=== PATIENT | female | born 1985 | race Caucasian/White ===

== ENCOUNTER 2023-01-07 08:23 | Outpatient (CLI) | payer BC, SELFPAY ==
[2023-01-07 19:59] LABS: Basophils Absolute Auto 0.1 K/mm3 (0.0-0.1); Basophils Percent Auto 1.2 % (0.2-1.2); Eosinophils Absolute Auto 0.7 K/mm3 (0-0.3); Eosinophils Percent Auto 7.8 % (0-4.4); Hematocrit 39.5 % (37.0-47.0); Hemoglobin 12.5 g/dL (12.0-15.0); Immature Granulocyte Absolute 0.03 K/mm3 (0.00-0.031); Immature Granulocyte Percent A 0.3 % (0-0.5); Lymphocytes Absolute Auto 2.82 K/mm3 (0.9-3.2); Lymphocytes Percent Auto 30.1 % (18.3-44.2); Mean Corpuscular HGB Conc 31.6 g/dl (32-36); Mean Corpuscular Hemoglobin 27.1 pg (26-34); Mean Corpuscular Volume 85.7 fl (80-100); Monocytes Absolute Auto 0.6 K/mm3 (0.1-0.6); Monocytes Percent Auto 5.9 % (2.6-8.5); Neutrophils Absolute Auto 5.1 K/mm3 (1.3-6.7); Neutrophils Percent Auto 54.7 % (45.5-73.1); Platelet Count Result 332 k/mm3 (150-375); Red Blood Count 4.61 M/mm3 (4.2-5.4); Red Cell Distribution Width 14.8 % (11.5-14.5); White Blood Count 9.4 K/mm3 (4.5-10.0)
[2023-01-07 21:11] LABS: Vitamin D 25 Hydroxy 47.5 ng/mL
[2023-01-07 21:16] LABS: Alanine Aminotransferase 26 U/L (6-35); Albumin Level 4.5 g/dL (3.5-5.1); Alkaline Phosphatase 76 U/L (38-126); Anion Gap 6 mmol/L (8-16); Aspartate Amino Transferase 22 U/L (14-36); Bilirubin,Total 0.5 mg/dL (0.2-1.3); Blood Urea Nitrogen 16 mg/dL (7-17); Calcium 8.8 mg/dL (8.4-10.2); Carbon Dioxide 29 mmol/L (22-30); Chloride 101 mmol/L (98-107); Cholesterol 148 mg/dL (0-200); Estimated Glomerular Filt Rate > 60; Glucose 86 mg/dL (65-110); HDL Direct 29 mg/dL; Potassium 4.2 mmol/L (3.4-5.0); Sodium 136 mmol/L (137-145); Triglycerides 144 mg/dL (<150)
[2023-01-07 21:24] LABS: Thyroid Stimulating Hormone Reflex 0.404 uIU/mL (0.465-4.68)
[2023-01-07 21:27] LABS: LDL Cholesterol Direct 80 mg/dL
[2023-01-07 21:59] LABS: Free T4 Free Thyroxine Reflex 1.12 ng/dL (0.78-2.19)
[2023-01-07 22:49] LABS: Total Triiodothyronine (T3) 1.42 NG/ML (0.97-1.69)
== END 2023-01-07 08:24 | disposition home or self-care (01) ==
LOC: ANHGOSHLAB 08:24
PROVIDERS: PCP Family Medicine; Visit Provider Nurse Practitioner
DX: E78.5 Hyperlipidemia, unspecified (principal); E55.9 Vitamin D deficiency, unspecified; R53.83 Other fatigue
CPT/HCPCS: 36415; 80053; 80061; 82306; 84439; 84443; 84480; 85025

== ENCOUNTER 2023-03-03 10:14 | Outpatient (CLI) | payer BC, SELFPAY ==
--- NOTE | ~2023-03-03 | MMUS_ITS ---
EXAMINATION: MM diagnostic ortega BI w cathryn, US breast RT limited HISTORY: Pancreatic raised approximately 6 x 8 cm area of right breast TECHNIQUE: Bilateral ML, MLO and CC full field and right spot ML, MLO and CC 3-D tomosynthesis images were performed and synthetic 2-D images were generated. CAD analysis was submitted and interpreted. The examination was initiated with ordered ultrasound examination. High resolution targeted right nichole ast ultrasound was performed over the area of complaint of pinkish raise area of right breast at 3:00 .. COMPARISON: None BREAST PARENCHYMAL COMPOSITION: The breasts are heterogeneously dense, which may obscure small masses . FINDINGS: MAMMOGRAPHIC FINDINGS: There is skin thickening in the lower inner quadrant of the right breast. No mammographic mass or architectural distortion, malignant calcification in either breast is detecte d. Occasional bilateral benign calcifications. ULTRASOUND: There is heterogeneous dense tissue with nonspecific shadowing, without identifiable discrete mass at the area of complaint at 3:00 7 cm from the nipple. IMPRESSION: 1. Asymmetric some skin thickening in the lower outer quadrant of the right breast, with dense shadow ing fibroglandular stroma on ultrasound examination at 3:00 7 cm from the nipple. 2. Consider skin punch biopsy in the lower outer right breast and/or ultrasound-guided biopsy of the dense shadowing tissue at 3:00 7 cm from the nipple. BI-RADS category 4, suspicious findings. Reviewed, dictated and finalized at location A. IMPRESSION: 1. Asymmetric some skin thickening in the lower outer quadrant of the right nichole ast, with dense shadowing fibroglandular stroma on ultrasound examination at 3: 00 7 cm from the nipple. 2. Consider skin punch biopsy in the lower outer right breast and/or ultrasound -guided biopsy of the dense shadowing tissue at 3:00 7 cm from the nipple. BI-RADS category 4, suspicious findings.
== END 2023-03-03 10:15 | disposition home or self-care (01) ==
PROVIDERS: PCP Nurse Practitioner; Visit Provider Nurse Practitioner
DX: N63.0 Unspecified lump in unspecified breast (principal); R92.8 Other abnormal and inconclusive findings on diagnostic imaging of breast
CPT/HCPCS: 76642; 77062; 77066; G0279

== ENCOUNTER 2023-10-09 09:22 | Outpatient (CLI) | payer BC, OTHER, SELFPAY ==
[2023-10-09 18:40] LABS: Basophils Absolute Auto 0.1 K/mm3 (0.0-0.1); Basophils Percent Auto 0.8 % (0.2-1.2); Eosinophils Absolute Auto 0.9 K/mm3 (0-0.3); Eosinophils Percent Auto 6.2 % (0-4.4); Hematocrit 38.6 % (37.0-47.0); Hemoglobin 12.2 g/dL (12.0-15.0); Immature Granulocyte Absolute 0.08 K/mm3 (0.00-0.031); Immature Granulocyte Percent A 0.6 % (0-0.5); Lymphocytes Percent Auto 19.2 % (18.3-44.2); Mean Corpuscular HGB Conc 31.6 g/dl (32-36); Mean Corpuscular Hemoglobin 27.2 pg (26-34); Mean Platelet Volume 9.1 fl (7.4-10.4); Monocytes Absolute Auto 0.8 K/mm3 (0.1-0.6); Monocytes Percent Auto 5.7 % (2.6-8.5); Neutrophils Absolute Auto 9.5 K/mm3 (1.3-6.7); Neutrophils Percent Auto 67.5 % (45.5-73.1); Platelet Count Result 376 k/mm3 (150-375); Red Blood Count 4.49 M/mm3 (4.2-5.4); Red Cell Distribution Width 14.3 % (11.5-14.5); White Blood Count 14.1 K/mm3 (4.5-10.0)
[2023-10-09 18:55] LABS: Alanine Aminotransferase 28 U/L (6-35); Albumin Level 4.1 g/dL (3.5-5.1); Alkaline Phosphatase 88 U/L (38-126); Anion Gap 9 mmol/L (8-16); Aspartate Amino Transferase 33 U/L (14-36); Bilirubin,Total 0.4 mg/dL (0.2-1.3); Blood Urea Nitrogen 10 mg/dL (7-17); Calcium 9.3 mg/dL (8.4-10.2); Carbon Dioxide 29 mmol/L (22-30); Chloride 102 mmol/L (98-107); Cholesterol 150 mg/dL (0-200); Estimated Glomerular Filt Rate > 60; Glucose 89 mg/dL (65-110); HDL Direct 33 mg/dL; Potassium 4.8 mmol/L (3.4-5.0); Sodium 140 mmol/L (137-145); Triglycerides 168 mg/dL (<150)
[2023-10-09 19:17] LABS: LDL Cholesterol Direct 89 mg/dL
[2023-10-09 19:24] LABS: Hemoglobin A1C 5.5 % (<5.7)
== END 2023-10-09 09:23 | disposition home or self-care (01) ==
LOC: ANHGOSHLAB 09:25
PROVIDERS: PCP Family Medicine; Visit Provider Nurse Practitioner Family
DX: Z00.00 Encounter for general adult medical examination without abnormal findings (principal); E78.5 Hyperlipidemia, unspecified; Z13.220 Encounter for screening for lipoid disorders; R73.03 Prediabetes
CPT/HCPCS: 36415; 80053; 80061; 83036; 85025

== ENCOUNTER 2024-04-11 09:29 | Outpatient (CLI) | payer OTHER, SELFPAY ==
[2024-04-11 13:16] LABS: Basophils Absolute Auto 0.1 K/mm3 (0.0-0.1); Basophils Percent Auto 1.2 % (0.2-1.2); Eosinophils Absolute Auto 0.6 K/mm3 (0-0.3); Eosinophils Percent Auto 9.2 % (0-4.4); Hematocrit 38.8 % (37.0-47.0); Hemoglobin 12.2 g/dL (12.0-15.0); Immature Granulocyte Absolute 0.03 K/mm3 (0.00-0.031); Immature Granulocyte Percent A 0.5 % (0-0.5); Lymphocytes Absolute Auto 1.53 K/mm3 (0.9-3.2); Lymphocytes Percent Auto 23.4 % (18.3-44.2); Mean Corpuscular HGB Conc 31.4 g/dl (32-36); Mean Corpuscular Hemoglobin 26.1 pg (26-34); Mean Corpuscular Volume 83.1 fl (80-100); Mean Platelet Volume 8.8 fl (7.4-10.4); Monocytes Absolute Auto 0.7 K/mm3 (0.1-0.6); Neutrophils Absolute Auto 3.6 K/mm3 (1.3-6.7); Neutrophils Percent Auto 55.7 % (45.5-73.1); Platelet Count Result 328 k/mm3 (150-375); Red Blood Count 4.67 M/mm3 (4.2-5.4); Red Cell Distribution Width 15.7 % (11.5-14.5); White Blood Count 6.5 K/mm3 (4.5-10.0)
[2024-04-11 13:34] LABS: Alanine Aminotransferase 35 U/L (6-35); Albumin Level 4.2 g/dL (3.5-5.1); Alkaline Phosphatase 90 U/L (38-126); Anion Gap 6 mmol/L (4-12); Aspartate Amino Transferase 40 U/L (14-36); Bilirubin,Total 0.4 mg/dL (0.2-1.3); Blood Urea Nitrogen 9 mg/dL (7-17); Calcium 8.8 mg/dL (8.4-10.2); Carbon Dioxide 26 mmol/L (22-30); Chloride 108 mmol/L (98-107); Cholesterol 145 mg/dL (0-200); Estimated Glomerular Filt Rate > 60; Glucose 85 mg/dL (65-110); HDL Direct 31 mg/dL; Potassium 4.2 mmol/L (3.4-5.0); Sodium 140 mmol/L (137-145); Triglycerides 144 mg/dL (<150)
[2024-04-11 13:46] LABS: LDL Cholesterol Direct 93 mg/dL
[2024-04-11 13:58] LABS: Hemoglobin A1C 5.7 % (<5.7)
[2024-04-11 14:05] LABS: Thyroid Stimulating Hormone 0.225 uIU/mL (0.465-4.680)
== END 2024-04-11 09:30 | disposition home or self-care (01) ==
LOC: ANHGOSHLAB 09:31
PROVIDERS: PCP Family Medicine; Visit Provider Nurse Practitioner Family
DX: E78.5 Hyperlipidemia, unspecified (principal); D35.00 Benign neoplasm of unspecified adrenal gland; F41.9 Anxiety disorder, unspecified; R53.83 Other fatigue; R73.03 Prediabetes; Z13.29 Encounter for screening for other suspected endocrine disorder
CPT/HCPCS: 36415; 80053; 80061; 83036; 84443; 85025

== ENCOUNTER 2024-05-02 10:25 | Outpatient (CLI) | payer OTHER, SELFPAY ==
[2024-05-02 16:16] LABS: Free T4 Free Thyroxine 0.87 ng/mL (0.78-2.19)
[2024-05-02 16:30] LABS: Thyroid Stimulating Hormone Reflex 0.207 uIU/mL (0.465-4.68)
[2024-05-02 17:15] LABS: Free T4 Free Thyroxine Reflex 1.07 ng/dL (0.78-2.19)
[2024-05-02 18:19] LABS: Total Triiodothyronine (T3) 1.74 NG/ML (0.97-1.69)
[2024-05-03 07:58] LABS: Triiodothyronine T3 Free 3.4 pg/mL (2.3-4.2)
== END 2024-05-02 10:26 | disposition home or self-care (01) ==
LOC: ANHGOSHLAB 10:27
PROVIDERS: PCP Family Medicine; Visit Provider Nurse Practitioner Family
DX: R79.89 Other specified abnormal findings of blood chemistry (principal); E03.9 Hypothyroidism, unspecified
CPT/HCPCS: 36415; 84439; 84443; 84480; 84481

== ENCOUNTER 2024-10-12 08:46 | Outpatient (CLI) | payer OTHER, SELFPAY ==
[2024-10-12 14:12] LABS: Basophils Absolute Auto 0.1 K/mm3 (0.0-0.1); Basophils Percent Auto 0.8 % (0.2-1.2); Eosinophils Percent Auto 8.5 % (0-4.4); Hematocrit 38.9 % (37.0-47.0); Hemoglobin 12.2 g/dL (12.0-15.0); Immature Granulocyte Absolute 0.08 K/mm3 (0.00-0.031); Immature Granulocyte Percent A 0.7 % (0-0.5); Lymphocytes Absolute Auto 2.53 K/mm3 (0.9-3.2); Lymphocytes Percent Auto 21.3 % (18.3-44.2); Mean Corpuscular HGB Conc 31.4 g/dl (32-36); Mean Corpuscular Hemoglobin 26.9 pg (26-34); Mean Corpuscular Volume 85.7 fl (80-100); Mean Platelet Volume 8.9 fl (7.4-10.4); Monocytes Absolute Auto 0.6 K/mm3 (0.1-0.6); Monocytes Percent Auto 5.3 % (2.6-8.5); Neutrophils Absolute Auto 7.6 K/mm3 (1.3-6.7); Neutrophils Percent Auto 63.4 % (45.5-73.1); Platelet Count Result 368 k/mm3 (150-375); Red Blood Count 4.54 M/mm3 (4.2-5.4); Red Cell Distribution Width 15.5 % (11.5-14.5); White Blood Count 11.9 K/mm3 (4.5-10.0)
[2024-10-12 15:30] LABS: Alanine Aminotransferase 25 U/L (6-35); Albumin Level 4.1 g/dL (3.5-5.1); Alkaline Phosphatase 96 U/L (38-126); Anion Gap 7 mmol/L (4-12); Aspartate Amino Transferase 52 U/L (14-36); Bilirubin,Total 0.4 mg/dL (0.2-1.3); Blood Urea Nitrogen 11 mg/dL (7-17); Calcium 8.7 mg/dL (8.4-10.2); Carbon Dioxide 28 mmol/L (22-30); Chloride 103 mmol/L (98-107); Cholesterol 161 mg/dL (0-200); Estimated Glomerular Filt Rate > 60; Glucose 85 mg/dL (65-110); HDL Direct 33 mg/dL; Potassium 4.2 mmol/L (3.4-5.0); Sodium 138 mmol/L (137-145); Triglycerides 199 mg/dL (<150)
[2024-10-12 15:41] LABS: LDL Cholesterol Direct 85 mg/dL
[2024-10-12 16:01] LABS: Thyroid Stimulating Hormone 0.483 uIU/mL (0.465-4.680)
[2024-10-12 16:42] LABS: Free T4 Free Thyroxine 0.85 ng/mL (0.78-2.19); Vitamin D 25 Hydroxy 25.8 ng/mL
== END 2024-10-12 08:47 | disposition home or self-care (01) ==
LOC: ANHGOSHLAB 08:48
PROVIDERS: PCP Family Medicine; Visit Provider Nurse Practitioner Family
DX: E78.5 Hyperlipidemia, unspecified (principal); E55.9 Vitamin D deficiency, unspecified; R79.89 Other specified abnormal findings of blood chemistry
CPT/HCPCS: 36415; 80053; 80061; 82306; 84439; 84443; 85025

== ENCOUNTER 2025-01-16 10:04 | Emergency (ER) | payer OTHER, SELFPAY ==
--- NOTE | ~2025-01-16 | CT_ITS ---
History: Dizziness PROCEDURE: CT head without contrast. COMPARISON: None TECHNIQUE: Axial imaging of the head performed from the skull base to the vertex without IV contrast. Sagittal a nd coronal reformations obtained. DLP: 605 mGy-cm FINDINGS: The ventricles are normal in size, shape and position. There is no mass, mass effect or midline shift. There is no abnormal extra-axial fluid collection or intracranial hemorrhage. Mucoperiosteal thickening within the left sphenoid sinus and bilateral ethmoid sinuses. Mucoperiostea l thickening is also detected within the bilateral maxillary sinuses. The frontal sinuses are clear. The mastoid air cells are well aerated. No acute displaced fractures within the overlying cranium. Impression: No acute intracranial hemorrhage or suspicious mass effect. Inflammatory sinus disease. Reviewed, dictated and finalized at location A. [employer] Impression: No acute intracranial hemorrhage or suspicious mass effect. Inflammatory sinus disease.
[2025-01-16 10:34] VITALS: BP 182/98; PULSE 55; RESP 18; TEMP 36.3; O2SAT 98
--- OUTSIDE RECORDS SUMMARY | 2025-01-16 11:13 | XMS_ITS | Patient Health Summary ---
Author Organization [facility] Address [address] [place] [address] Care Team Providers Care Display Director Name Role Phone Unavailable Primary Care Provider Unavailabl e Note from [facility],non-owned Affiliates and Associated Physician Practices is amultiple site organization consisting of ambulatory clinics and hospital sitesin [place], [place], [place] and [place]. This disclosure is being madepursuant to the Care Everywhere program and may not contain all informatio navailable regarding this patient. Last updated 18.[facility] Social History Tobacco Use Types Packs/Day Years Used Date Smoking Tobacco: Never Assessed Sex and Gender Information Value Date Recorded Sex Assigned at Female 02/20/2021 12:06 PM CDT Gender Identity Female 02/20/2021 12:06 PM CDT Sexual Orientation Straight 02/20/2021 12 :06 PM CDT
--- OUTSIDE RECORDS SUMMARY | 2025-01-16 11:13 | XMS_ITS | Clinical Summary ---
Author Organization [facility] Address [address] [place] [address] Care Team Providers Care Rn Documentation Name Role Phone Angela Diaz MD Primary Care Provider Janice Garcia [employer]PERVISOR Unavailable Allergies Active Allergy Reactions Criticality Noted Date Comments Tetracyclines Anaphylaxis,Itching,Rash,Swelling High 08/20/2009 Medications albuterol HFA (PROVENTIL HFA,VENTOLIN HFA,PROAIR HFA) 90 mcg/actuation inhaler INHALE 1 PUFF BY MOUTH EVERY 4 HOURS NEEDED FOR SHORTNESS OF BREATH FOR WHEEZING Active atorvastatin (LIPITOR) 10 mg tablet daily Active FLUoxetine (PROzac) 20 mg capsule fluoxetine 20 mg capsule Active fsh/flx/prim/cur /bor/om3,6,9 5 (OMEGA 3-6-9 FATTY ACIDS ORAL) Active omeprazole (PriLOSEC) 10 mg capsule Take 1 capsule (10 mg total) by mouth daily Active hydrOXYzine (ATARAX) 25 mg tablet hydroxyzine HCl 25 mg tablet TAKE 1 TABLET BY MOUTH FOUR TIMES DAILY NEEDED Active multivit with calcium,iron,min (WOMEN'S DAILY MULTIVITAMIN ORAL) Active Active Problems Problem Noted Date Diagnosed Date Lump in lower outer quadrant of right breast 11/2022 Encounters Date Type Department Care Team Description 12/21/2024 2:15 PM [employer] Lab [facility] Endocrinology Metabolism and Lipid [address] [place] [address] [place] [address] Abnormal thyroid stimulating hormone (TSH) level 12/21/2024 1:00 PM [employer] Office Visit [facility] Endocrinology Metabolism and Lipid [address] [place] [address] [place] [id number] Pratik Reese MD Adrenal mass (HCC) (Primary Dx); Hyperlipidemia, unspecified hyperlipidemia type; Abnormal thyroid stimulating hormone (TSH) level 12/13/2024 Telephone [facility] Endocrinology Metabolism and Lipid [address] [place] [address] [place] [phone] Kiya Foster, RN Reschedule 12/16/[address] Reese from Last 3 Months Immunizations Immunization Administration Dates Next Due Influenza, Quadrivalent, Spl it, Preservative Free, Intramuscular 10/10/2017 Surgical History Surgery Date Site/Laterality Comments SECTION 2007 and 2009 CHOLECYSTECTOMY Medical History Medical History Date Comments Overweight Social History Tobacco Use Types Packs/Day Years Used Date Smoking Tobacco: Former Cigarettes Tobacco Cessation:Counseling Given: Not Answered Comments Unknown Sex and Gender Information Value Date Recorded Sex Assigned at Not on file Legal Sex Female 10:47 AM CDT Gender Identity Not on file Sexual Orientation Not on file Obstetrics History Last Filed Vital Signs Vital Sign Reading Time Taken Comments Blood Pressure 140/84 12/21/2024 1:04 PM [employer] Pulse 77 12/21/2024 1:04 PM [employer] Temperature 36.8 C (98.2 F) 12/21/2024 1:04 PM [employer] Respiratory Rate 20 05/19/2023 9:26 AM CDT Oxygen Saturation 99% 05/19/2023 9:26 AM CDT Inhaled Oxygen Concentration - - Weight 135.5 kg (298 lb 12.8 oz) 12/21/2024 1:04 PM [employer] Height 170.2 cm (5' 7 ) 12/21/2024 1:04 PM [employer] Body Mass Index 46.8 12/21/2024 1:04 PM [employer] Plan of Treatment Health Maintenance Due Date Last Done Comments Breast Cancer Screening-Mammogram 1984 Cervical Cancer Screening 1984 Depression Screening 1984 Hepatitis C Screening 1984 Varicella Vaccines (1 of 2 - 13+ 2-dose series) 1997 Hepatitis B Screening 2002 Regular Well Visit/Exam 18-64 2002 Pneumococcal vaccine <65 (1 of 2 - PCV) 2003 Influenza Vaccine (#1) 2024 7, 09/17/2009 DTaP/Tdap/Td Vaccine (2 - Td or Tdap) 08/02/2031 08/02/2021 HPV Vaccines Aged Out No longer eligi ble based on patient's age to complete this topic Procedures Procedure Name Priority Date/Time Associated Diagnosis Comments T3, FREE Routine 12/21/2024 2:06 PM [employer] Abnormal thyroid stimulating hormone (TSH) level T4, FREE Routine 12/21/2024 2:06 PM [employer] Abnormal thyroid stimulating hormone (TSH) level TSH Routine 12/21/2024 2:06 PM [employer] Abnormal thyroid stimulating hormone (TSH) level COMPREHENSIVE METABOLIC PANEL Routine 12/21/2024 2:06 PM [employer] Abnormal thyroid stimulating hormone (TSH) level from Last 3 Months Results * T3, free (12/21/2024 2:06 PM [employer]) T3, Free 2.88 2.30 - 4.40 pg/mL [facility] Blood 12/21/2024 2:06 PM [employer] 12/21/2024 3:19 PM [employer] us Pratik Reese MD LAB BLOOD ORDERABLES Final Re sult [facility] * TSH (12/21/2024 2:06 PM [employer]) TSH (Thyrotropin) 0.78 0.27 - 4.20 uIU/mL [facility] Blood 12/21/2024 2:06 PM [employer] 12/21/2024 3:19 PM [employer] us Pratik Reese MD LAB BLOOD ORDERABLES Final Re sult [facility] * T4, free (12/21/2024 2:06 PM [employer]) Free T4 1.04 0.80 - 1.80 ng/dL [facility] Blood 12/21/2024 2:06 PM [employer] 12/21/2024 3:19 PM [employer] us Pratik Reese MD LAB BLOOD ORDERABLES Final Re sult [facility] * Comprehensive metabolic panel (12/21/2024 2:06 PM [employer]) Total Protein 7.5 6.1 - 8.4 g/dL [facility] Albumin 4.5 3.5 - 5.2 g/dL [facility] Calcium 9.4 8.6 - 10.3 mg/dL [facility] BUN 11 7 - 23 mg/dL [facility] Total Bilirubin 0.29 0.20 - 1.40 mg/dL [facility] Alk Phos, Total 95 35 - 129 IU/L [facility] AST (SGOT) 19 11 - 47 IU/L [facility] ALT (SGPT) 27 6 - 53 IU/L [facility] Creatinine 0.74 0.60 - 1.10 mg/dL [facility] Sodium 141 135 - 145 mmol/L [facility] Potassium 4.4 3.3 - 5.1 mmol/L [facility] Chloride 102 95 - 107 mmol/L [facility] CO2 Content 27 21 - 29 mmol/L [facility] Glucose 76 64 - 99 mg/dL [facility] Comment: NONFASTING GLUCOSE RANGE = 64-199 mg/dL FASTING GLUCOSE 64 - 99 = NORMAL FASTING GLUCOSE 100 - 125 = IMPAIRED FASTING GLUCOSE FASTING GLUCOSE >=126 = PROVISIONAL DIAGNOSIS OF DIABETES eGFR >90.0 >60.0 mL/min/1.7 3 m2 [facility] Blood 12/21/2024 2:06 PM [employer] 12/21/2024 3:19 PM [employer] us Pratik Reese MD LAB BLOOD ORDERABLES Final Re sult [facility] from Last 3 Months Insurance [facility] Care Teams Rn Documentation Relationship Specialty Start Date End Date Angela Diaz MD PCP - General 09/16/17 Janice Garcia NP Nurse Practitioner Nurse Practitioner 03/18/23
--- OUTSIDE RECORDS SUMMARY | 2025-01-16 11:13 | XMS_ITS | Clinical Summary ---
Author Organization [facility] Address [address] [place] [address] Care Team Providers Care Software Implementation Project Manager Name Role Phone Unavailable Primary Care Provider Unavailabl e Source Comments [facility],non-owned Affiliates and Associated Physician Practices is amultiple site organization consisting of ambulatory clinics and hospital sitesin [place], [place] and [place]. This disclosure is being madepursuant to the Care Everywhere program and may not contain all information available regarding this patient. Last updated 18.[facility] Social History Tobacco Use Types Packs/Day Years Used Date Smoking Tobacco: Never Assessed Sex and Gender Information Value Date Recorded Sex Assigned at Female 02/20/2021 12:06 PM CDT Gender Identity Female 02/20/2021 12:06 PM CDT Sexual Orientation Straight 02/20/2021 12 :06 PM CDT Plan of Treatment Health Maintenance Due Date Last Done Comments LIPID TESTING 1984 MAMMOGRAM 1984 PAP SMEAR 1984 HIV SCREENING 1999 HEPATITIS C SCREENING 01/14/2002 DTAP/TDAP/TD VACCINES (1 - Tdap) 2003 HEPATITIS B VACCINE (1 of 3 - 19+ 3-dose series) 2003 COVID-19 VACCINE (2023-2 5 season) 2024 INFLUENZA VACCINE (#1) 2024 DEPRESSION SCREENING 11/23/2024 ZOSTER VACCINE (1 of 2) 2034 HIB VACCINE Aged Out No longer eligi ble based on patient's age to complete this topic HPV VACCINE Aged Out No longer eligi ble based on patient's age to complete this topic MENINGOCOCCAL (Group B) VACCINE Aged Out No longer eligible based on patient's age to complete this topic MENINGOCOCCAL VACCINE Aged Out No prachi ibeth eligible based on patient's age to complete this topic PNEUMOCOCCAL VACCINE Aged Out No long er eligible based on patient's age to complete this topic
--- OUTSIDE RECORDS SUMMARY | 2025-01-16 11:13 | XMS_ITS | Data Portability ---
Author Organization [facility] Address [address] [place] [address] Care Team Providers Care Outbound Sales Specialist Name Role Phone MARTY MAN Primary Care Provider Assessment No assessment recorded. Plan of Treatment Reminders Order Date Submit Date Provider Last Modified By Organization Details Last Modified Time Details Appointments None recorded . Lab None recorded . Referral None recorded . Procedures None recorded . Surgeries None recorded . Imaging US, breast, unilater al, complete 2022 023 [facility], [facility] [address], [address], 17:39:05 Medication Orders cephalex in 500 mg capsule 2022 023 [facility] [address] [place], [address], 10:32:45 Patient TargetsNo targets recorded. Patient InstructionsNo instructions recorded. Reason for Referral None Reported. Results Created Date Observation Date Name Description Value Unit Range Abnormal Flag Note LastModifiedBy Organization Detail LastModifiedTime 03/03/20 23 03/03/2023 MAMMO , diagn ostic , digit al, bilat eral No observ ation record ed. [place] [address], [place], [address], 03/04/2023 15:44:24 Result Notes None recorded. Problems Name Problem SNOMED Code Status Onset Date Resolution Date Notes Provider Name and Address Organization Details Recorded Time Body mass index 30+ - obesity [id number] Active 2016 Body mass index (BMI) 34.0-34.9, adult;Navneet rded Elsewhere: No Locatio n: [facility]: EHR Chroni c: N Practice ID: 0001 Billa ble Time: 01:45:00 PM Not Available [facility] 0 22:02:10 Screening for malignant neoplasm of cervix Active 2014 Screening for malignant neoplasms of the cervix;Rec orded Elsewhere: No Locatio n: [facility]: EHR Chroni c: N Practice ID: 0001 Billa ble Time: 03:30:00 PM Not Available [facility] 0 22:02:10 Venereal disease screening Active 2014 Screening examinatio n for venereal disease;Re corded Elsewhere: No Locatio n: [facility]: EHR Chroni c: N Practice ID: 0001 Billa ble Time: 03:30:00 PM Not Available [facility] 0 22:02:10 Abnormal weight gain 513367703 Active 2012 Abnormal weight gain;Pract ice ID: 0001 Not Available [facility] 0 22:02:10 Specializ ed medical examinati on Active 2012 Routine gynecologi omer examinatio n;Practice ID: 0001 Not Available [facility] 0 22:02:10 Contracep tion care Active 2014 General counseling on initiation of other contracept kimi measures;Timo allen ID: 0001 Not Available [facility] 0 22:02:10 test negative 665387704 Active 2014 Negative Test;Pract ice ID: 0001 Not Available [facility] 0 22:02:10 Uses combined oral contracep tion 033092144 Active 2014 Encounter for surveillan ce of contracept kimi pills;Prac aubrey ID: 0001 Not Available [facility] 0 22:02:10 Contracep tion care managemen t Active 2015 Encounter for contracept kimi management , unspecifie d;Practice ID: 0001 Not Available [facility] 0 22:02:10 Spermatoz oa count Active 2015 Aftercare following sterilizat ion reversal;P ractice ID: 0001 Not Available [facility] 0 22:02:[address] Concept Active 2016 Encntr for harness preparer exam (general) (routine) w/o abn findings;P ractice ID: 0001 Not Available [facility] 0 22:02:10 Obesity 988122032 Active 2014 Obesity;Re corded Elsewhere: No Locatio n: [facility]: EHR Chroni c: N Practice ID: 0001 Billa ble Time: 03:30:00 PM Not Available [facility] 0 22:02:11 Specializ ed medical examinati on Active 2014 Other specified chlamydial diseases;R ecorded Elsewhere: No Locatio n: [facility]: EHR Chroni c: N Practice ID: 0001 Billa ble Time: 03:30:00 PM Not Available [facility] 0 22:02:11 Abnormal cervical Papanicol aou smear 105957703 Active 2014 Other abnormal papanicola ou smear of cervix and cervical HPV;Record ed Elsewhere: No Locatio n: [facility]: EHR Chroni c: N Practice ID: 0001 Billa ble Time: 03:30:00 PM Not Available [facility] 0 22:02:11 Problem Notes None recorded. Procedures Surgical History Date Name Laterality Status Provider Name and Address Organization Details Recorded Time 03/23/20 19 Date of Last Pap Smear completed Josseline Galvez [facility] 03/03/2023 09:52:46 [facility] 03/03/2023 09:56:47 Imaging Results Imaging Date Name Status LastModified by Organiz ation Details LastModified Time 03/03/2023 MAMMO, diagnostic, digital, bilateral completed [place] [address], [place], [address], 03/04/2023 15:44:24 Procedure Notes None recorded. Medical Equipment None Reported. Allergies Allergen ID Allergen Name Allergen Category Reaction Reaction Severity Criticality Documentation Date Start Date Code Code System Note Provider Name and Address Organization Details Recorded Time tetracycl ine medicatio n Not available Not available Not available 03/03/2023 [id number] RxNorm Josseline [place], [place] - [facility] 3 09:51:38 Medications Name Sig Start Date Stop Date Status Note LastModified by Organization Details LastModified Time atorvasta tin 10 mg tablet 1 tablet every day by oral route. active Not Available Not Available No t Available lorazepam 2 mg tablet TAKE ONE TABLET BY MOUTH 1-2 HOURS PRIOR TO APPOINTM ENT. 03/03 completed Not Available Not Available Not Available cephalexi n 500 mg capsule TAKE 1 CAPSULE BY MOUTH EVERY 6 HOURS FOR 10 DAYS active Not Available Not Available No t Available omeprazol e 20 mg capsule,d elayed release 1 capsule every day by oral route. active Not Available Not Available No t Available hydroxyzi ne HCl 25 mg tablet TAKE 1 TABLET BY MOUTH FOUR TIMES DAILY NEEDED active Not Available Not Available No t Available albuterol sulfate HFA 90 mcg/actua tion aerosol inhaler INHALE 1 PUFF BY MOUTH EVERY 4 HOURS NEEDED FOR SHORTNES S OF BREATH FOR WHEEZING active Not Available Not Available No t Available Prozac 10 mg capsule Take 1 capsule every day by oral route. 03/03 completed Not Available Not Available Not Available fluoxetin e 20 mg capsule TAKE 1 CAPSULE BY MOUTH ONCE DAILY . APPOINTM ENT REQUIRED FOR FUTURE REFILLS active Not Available Not Available No t Available amoxicill in 875 mg-potass ium clavulana te 125 mg tablet TAKE 1 TABLET BY MOUTH TWICE DAILY 03/03 completed Not Available Not Available Not Available Flovent HFA 110 mcg/actua tion aerosol inhaler 1 puff twice a day by inhalati on route. active Not Available Not Available No t Available Asmanex Twisthale r 110 mcg/actua tion(30 doses) breath activated inhalr inhale 2 puff by inhalati on route every day in the evening 03/02 completed Prescrib ed Elsewher e: Yes Loca tion: [facility] M odify By: smcaley Encounte r DateTime : 08/22/20 16 03:00:00 PM Not Available Not Available Not Available Lomedia 24 Fe 1 mg-20 mcg (24)/75 mg (4) tablet take 1 tablet by oral route every day 02/13 completed Prescrib kayce Ellis e: No Locat ion: [facility] odify By: tgsyed h Cuca ter DateTime : 11/26/19 16 04:00:00 PM Not Available Not Available Not Available Arnuity Ellipta 100 mcg/actua tion powder for inhalatio n INHALE 1 PUFF BY MOUTH DAILY active Not Available Not Available No t Available ProAir RespiClic k 90 mcg/actua tion breath activated INHALE 2 PUFFS BY MOUTH EVERY 4 HOURS NEEDED FOR SHORTNES S OF BREATH OR WHEEZING active Not Available Not Available No t Available BinaxNOW COVID-19 Ag Self Test kit TEST DIRECTED TODAY 03/03 completed Not Available Not Available Not Available Vitals Date Recorded Body height Body mass index (BMI) Body weight Systolic blood pressure Diastolic blood pressure Provider Name and Address Organization Details Last Updated DateTime 03/03/2023 170.18 cm 40.9 kg/m2 603802.6 1 g 144 mm[Hg] 85 mm[Hg] Josseline Galvez [facility] 09:51:04 Social History Question Answer Notes LastModified by Organizat ion Details LastModified Time Tobacco Smoking Status Former Smoker Josseline Galvez [facility], [facility] 03/03/2023 10:20:59 What Is Your Level Of Alcohol Consumption? None Information not available 03/03/2023 Are You Blind Or Do You Have Difficulty Seeing? No Information not available 03/03/2023 Are You Deaf Or Do You Have Serious Difficulty Hearing? No Information not available 03/03/2023 Are There Any Guns Present In Your Home? No Information not available 03/03/2023 Sex: Unknown Functional Status Question Answer Note LastModified by Organizat ion Details LastModified Time Do you have difficulty walking or climbing stairs? No Information not available 03/03/2023 Are you able to walk? YESWOREST Information not available 03/03/2023 Are you able to care for yourself? Yes Information not available 03/03/2023 Do you have difficulty dressing or bathing? No Information not available 03/03/2023 Mental Status None recorded. Family History Relationship Description Onset Age of this Age Resolved Age Notes LastModified by Organization Details LastModified Time Mother Asthma vschroedter Not availabl e 03/03/2023 09:51:08 Brother Asthma vschroedter Not availab le 03/03/2023 09:51:08 Father Hyperlipidem ia vschroedter Not available 02/21 09:55:58 Notes:Father: Hypertension M aternal grandfather: Tuberculosis, Cancer, lung Mother: Diabetes mellitus Paternal grandfather: Cancer, lung, Diabetes mellitus, Hypertension Paternal grandmother: Diabetes mellitus Medical History Condition Response Allergies (Food, seasonal, environmental ) N Other N Drug/Latex Allergies/Reactions N Blood Transfusion N Breast Cancer N Dermatologic Disorders N Lung Disease N Defects or Inherited Disease N Breast Problem N Gestational Diabetes N Hematologic disorders N Anesthesia Complications N History of STI N Deep Vein Thrombosis N Polycystic ovary syndrome N Anxiety Disorder N Autoimmune disease N Arthritis N Polyps N Infertility N Acid Reflux (GERD) Y History of abnormal pap N Cancer N Varicosities N Stroke N Neurologic/Epilepsy N Endometriosis N High Cholesterol Y Fibromyalgia N Headaches N Kidney Disease N Heart Problems N Thyroid Problems N Kidney or Bladder Problems N GI Problems N Eating Disorder N Anemia N Art (IVF or FET) N Psychiatric Illness N Ovarian Cancer N Diabetes N Pulmonary (TB, Asthma) N Hepatitis/Liver Disease N No Past Medical History N Eczema N Urinary Tract Infection N Abuse/Domestic Violence N Asthma Y Trauma/Violence N Depression/ depression Y Heart Disease N Pre-Eclampsia N Hypertension N Osteoporosis N Thrombophilias N Gynecological History Statement/Question Response Abnormal Pap Y Flow Moderate Date of LMP 02/23/2023 STIs/STDs Y HPV Vaccine N Duration of Flow (days) 6 Current Control Method Partner Vas ectomy Age at First Child 17 Are cycles usually normal Y Sexually Active? Y Menses Monthly Y Age of first menstrual cycle 12 Date of Last Pap Smear 03/23/2019 Sexual Problems? N LMP Approximate Obstetrics History GPAL:G 3 P 0 0 0 3 Type Value Living 3 Total 3 Past Encounters Encounter ID Performer Location Encounter Start Date Encounter Closed Date Diagnosis/Indication Diagnosis SNOMED-CT Code Diagnosis ICD10 Code Diagnosis Note [id number] [place] [address] [address] 03/03/2023 09:29:25 03/03/2023 10:40:46 Breast lump [id number] N63.0 Mass located at about 4 oclock, 1.5cm from nipple. Mass is about 2cm in size. Non-tender to touch. Some redness, skin is warm to touchwe agreed to STAT right breast u/s at [facility] for further evaluation will start antibiotic course as well, rx sent. R/B/A discussedS he is going on a cruise to the [facility] on Thursday, discussed importance of having imaging done at [place] today. Will reach out with results and further recommenda tions once imaging is complete.E D precaution s discussed. To notify the office with any worsening symptoms or aditional findings. Time spent in visit is a total of 20 mins with at least 50% of visit consisting of counseling and review of plan of care. BP elevated. No symptoms. Encouraged PCP f/u for BP check. Abscess of skin of breast [id number] 1560846 N61.1 Health Concerns Section Related Observation LastModified by Organization Detai ls LastModified Time None Recorded Concern Status LastModified by Organization Details LastModified Time None Recorded Advance Directives Directive None Recorded Payers Encounter Date Sequence Insurance Name Policy Number Policy Rios Covered Member ID Rios Member ID Guarantor Name 03/03/2023 1 [place] [id number] Cal Last [id number] Cecilia Last Notes Date Note Type Note Provider Name and Address Organization Details Recorded Time 03/03/2023 text/html 38yo [id number] nts for evaluation of right breast lump, redness, and warmthsymptoms started 3 days agonoticed symptoms after doing yard work on Thursday, denies any injuries to the breastno nipple d/c, lump is non-tenderno fevers, n/v, abdominal pain, or flu-like symptomsshe last BF about 12 years agopartner with vasectomy for BCno fam hx of BCmedical hx : High cholesterol, asthma, anxiety, GERD Sandee Hatfield, [facility] [address], [place], [address], [place] [facility] 03/03/2023 10:39:00 OBGyn Episode Ob Episode Information Episode Created Date Number of Fetuses Patient Bloodtype Patient rh Status Prepregnancy Weight lbs Domestic Partner Domestic Partner Phone Father Name Helper Coordinator Status 03/03/20 1 CLOSED Fetus Data First Name Last Name Admitted to NICU Weight (g) Sex Living Outcome Pediatric Complications Fetus ID Race Codes Race Delivery Type 3430.06 2704 F Full Term [id number] Vaginal Delivery Agus Calculation Initial Agus Date Initial Exam Date Initial Exam Provider Initial Ultrasound Date Last Menstrual Period Date Ultra Sound Weeks Gestation 0 Eighteen To Twenty Week Agus Update Ultra Sound Date Fundal Height At Umbil Quickening Date Ultra Sound Latest Weeks Gestation Final Agus Confirmed By Final Agus Confirmed Date Final Agus Date Ultra Sound Latest Days Gestation 0 0 Menstrual History Last Menstrual Date Menses Monthly On Bcp Conception Prior Menses Frequency Hcg Plus Date Menarche Onset Age Delivery Information Delivery Date Delivery Type Labor Anesthesia Weeks Gestation Incision Type Labor Labor Length Hrs Delivered By Post Complications Tubal Sterilization Discharge Date Comments 2 38 Discharge Information Feeding Method Contraceptive Method Maternal HG B and HCT Levels Ob Episode Information Episode Created Date Number of Fetuses Patient Bloodtype Patient rh Status Prepregnancy Weight lbs Domestic Partner Domestic Partner Phone Father Name Helper Coordinator Status 03/03/20 23 1 CLOSED Fetus Data First Name Last Name Admitted to NICU Weight (g) Sex Living Outcome Pediatric Complications Fetus ID Race Codes Race Delivery Type 3685.43 5 M Full Term [id number] Primary Agus Calculation Initial Agus Date Initial Exam Date Initial Exam Provider Initial Ultrasound Date Last Menstrual Period Date Ultra Sound Weeks Gestation 0 Eighteen To Twenty Week Agus Update Ultra Sound Date Fundal Height At Umbil Quickening Date Ultra Sound Latest Weeks Gestation Final Agus Confirmed By Final Agus Confirmed Date Final Agus Date Ultra Sound Latest Days Gestation 0 0 Menstrual History Last Menstrual Date Menses Monthly On Bcp Conception Prior Menses Frequency Hcg Plus Date Menarche Onset Age Delivery Information Delivery Date Delivery Type Labor Anesthesia Weeks Gestation Incision Type Labor Labor Length Hrs Delivered By Post Complications Tubal Sterilization Discharge Date Comments 8 38 Discharge Information Feeding Method Contraceptive Method Maternal HG B and HCT Levels Ob Episode Information Episode Created Date Number of Fetuses Patient Bloodtype Patient rh Status Prepregnancy Weight lbs Domestic Partner Domestic Partner Phone Father Name Helper Coordinator Status 03/03/20 23 1 CLOSED Fetus Data First Name Last Name Admitted to NICU Weight (g) Sex Living Outcome Pediatric Complications Fetus ID Race Codes Race Delivery Type 3883.65 4704 F Prematur e [id number] Repeat Agus Calculation Initial Agus Date Initial Exam Date Initial Exam Provider Initial Ultrasound Date Last Menstrual Period Date Ultra Sound Weeks Gestation 0 Eighteen To Twenty Week Agus Update Ultra Sound Date Fundal Height At Umbil Quickening Date Ultra Sound Latest Weeks Gestation Final Agus Confirmed By Final Agus Confirmed Date Final Agus Date Ultra Sound Latest Days Gestation 0 0 Menstrual History Last Menstrual Date Menses Monthly On Bcp Conception Prior Menses Frequency Hcg Plus Date Menarche Onset Age Delivery Information Delivery Date Delivery Type Labor Anesthesia Weeks Gestation Incision Type Labor Labor Length Hrs Delivered By Post Complications Tubal Sterilization Discharge Date Comments 0 36 Discharge Information Feeding Method Contraceptive Method Maternal HG B and HCT Levels
--- OUTSIDE RECORDS SUMMARY | 2025-01-16 11:13 | XMS_ITS | Referral Summary ---
Author Organization [facility] Address [address] [place] [address] Care Team Providers Care Mold Repairer Name Role Phone Unavailable Primary Care Provider Unavailabl e Source Comments [facility],non-owned Affiliates and Associated Physician Practices is amultiple site organization consisting of ambulatory clinics and hospital sitesin [place], [place], [place] and [place]. This disclosure is being madepursuant to the Care Everywhere program and may not contain all information available regarding this patient. Last updated 18.[facility] Social History Tobacco Use Types Packs/Day Years Used Date Smoking Tobacco: Never Assessed Sex and Gender Information Value Date Recorded Sex Assigned at Female 02/20/2021 12:06 PM CDT Gender Identity Female 02/20/2021 12:06 PM CDT Sexual Orientation Straight 02/20/2021 12 :06 PM CDT Plan of Treatment Not on file
--- OUTSIDE RECORDS SUMMARY | 2025-01-16 11:13 | XMS_ITS | Referral Summary ---
Author Organization [facility] Address [address] [place] [address] Care Team Providers Care Fashion Journalist Name Role Phone Angela Diaz MD Primary Care Provider Janice Garcia APPLICATION SPECIALIST Unavailable Encounters Date Type Department Care Team Description 12/21/2024 2:15 PM VICE INVESTIGATOR Lab [facility] Metabolism and Lipid [address] [place] [address] [place] [address] Abnormal thyroid stimulating hormone (TSH) level 12/21/2024 1:00 PM VICE INVESTIGATOR Office Visit [facility] Metabolism and Lipid [address] [place] [address] Pratik Reese MD Adrenal mass (HCC) (Primary Dx); Hyperlipidemia, unspecified hyperlipidemia type; Abnormal thyroid stimulating hormone (TSH) level 12/13/2024 Telephone [facility] Metabolism and Lipid [address] [place] [address] [place] [address] Kiya Foster, RN Reschedule 12/16/[address] Reese from Last 3 Months Allergies Active Allergy Reactions Criticality Noted Date [...] lower outer quadrant of right breast 11/2022 Immunizations Immunization Administration Dates Next Due Influenza, Quadrivalent, Spl it, Preservative Free, Intramuscular 10/10/2017 Social History Tobacco Use Types Packs/Day Years Used Date Smoking Tobacco: Former Cigarettes Tobacco Cessation:Counseling Given: Not Answered Comments Unknown Sex and Gender Information Value Date Recorded Sex Assigned at Not on file Legal Sex Female 10:47 AM CDT Gender Identity Not on file Sexual Orientation Not on file Last Filed Vital Signs Vital Sign Reading Time Taken Comments Blood Pressure 140/84 12/21/2024 1:04 PM VICE INVESTIGATOR Pulse 77 12/21/2024 1:04 PM VICE INVESTIGATOR Temperature 36.8 C (98.2 F) 12/21/2024 1:04 PM VICE INVESTIGATOR Respiratory Rate 20 05/19/2023 9:26 AM CDT Oxygen Saturation 99% 05/19/2023 9:26 AM CDT Inhaled Oxygen Concentration - - Weight 135.5 kg (298 lb 12.8 oz) 12/21/2024 1:04 PM VICE INVESTIGATOR Height 170.2 cm (5' 7 ) 12/21/2024 1:04 PM VICE INVESTIGATOR Body Mass Index 46.8 12/21/2024 1:04 PM VICE INVESTIGATOR Plan of Treatment Not on file Procedures Procedure Name Priority Date/Time Associated Diagnosis Comments T3, FREE Routine 12/21/2024 2:06 PM VICE INVESTIGATOR Abnormal thyroid stimulating hormone (TSH) level T4, FREE Routine 12/21/2024 2:06 PM VICE INVESTIGATOR Abnormal thyroid stimulating hormone (TSH) level TSH Routine 12/21/2024 2:06 PM VICE INVESTIGATOR Abnormal thyroid stimulating hormone (TSH) level COMPREHENSIVE METABOLIC PANEL Routine 12/21/2024 2:06 PM VICE INVESTIGATOR Abnormal thyroid stimulating hormone (TSH) level from Last 3 Months Results * T3, free (12/21/2024 2:06 PM VICE INVESTIGATOR) T3, Free 2.88 2.30 - 4.40 pg/mL [facility] Blood 12/21/2024 2:06 PM VICE INVESTIGATOR 12/21/2024 3:19 PM VICE INVESTIGATOR Pratik Reese MD LAB BLOOD ORDERABLES Final Re sult Performing Organization Address [facility] Co de Phone Number [facility] * TSH (12/21/2024 2:06 PM VICE INVESTIGATOR) TSH (Thyrotropin) 0.78 0.27 - 4.20 uIU/mL [facility] Blood 12/21/2024 2:06 PM VICE INVESTIGATOR 12/21/2024 3:19 PM VICE INVESTIGATOR Pratik Reese MD LAB BLOOD ORDERABLES Final Re sult Performing Organization Address [facility] Co de Phone Number [facility] * T4, free (12/21/2024 2:06 PM VICE INVESTIGATOR) Free T4 1.04 0.80 - 1.80 ng/dL [facility] Blood 12/21/2024 2:06 PM VICE INVESTIGATOR 12/21/2024 3:19 PM VICE INVESTIGATOR Pratik Reese MD LAB BLOOD ORDERABLES Final Re sult Performing Organization Address City/[facility] Co de Phone Number [facility] * Comprehensive metabolic panel (12/21/2024 2:06 PM VICE INVESTIGATOR) Total Protein 7.5 6.1 - 8.4 g/dL [...] [facility] Blood 12/21/2024 2:06 PM VICE INVESTIGATOR 12/21/2024 3:19 PM VICE INVESTIGATOR us Pratik Reese MD LAB BLOOD ORDERABLES Final Re sult [facility] from Last 3 Months [place] [address] Care Teams Fashion Journalist Relationship Specialty Start Date End Date Angela Diaz MD PCP - General 09/16/17 Janice Garcia NP Nurse Practitioner Nurse Practitioner 03/18/23
--- NOTE | 2025-01-16 12:37 | ECG_ITS ---
Test Date: 2025-01-16 12:42:25 Measurements Intervals [place] Rate: 72 P: 25 MI: 144 QRS: 25 QRSD: 90 T: 29 QT: 403 QTc: 444 Interpretive Statements SINUS RHYTHM BASELINE ARTIFACT- I, II, III, AVR, AVL, AVF NORMAL ECG No previous ECG available for comparison Electronically Signed On 01-16-2025 12:57:24 JOB DEVELOPER by Terell Reyes D.O.
[2025-01-16 13:03] LABS: Basophils Absolute Auto 0.1 K/mm3 (0.0-0.1); Basophils Percent Auto 0.7 % (0.2-1.2); Eosinophils Absolute Auto 0.6 K/mm3 (0-0.3); Eosinophils Percent Auto 4.6 % (0-4.4); Hematocrit 40.9 % (37.0-47.0); Hemoglobin 13.1 g/dL (12.0-15.0); Immature Granulocyte Absolute 0.11 K/mm3 (0.00-0.031); Immature Granulocyte Percent A 0.9 % (0-0.5); Lymphocytes Absolute Auto 2.14 K/mm3 (0.9-3.2); Lymphocytes Percent Auto 16.8 % (18.3-44.2); Mean Corpuscular Hemoglobin 26.8 pg (26-34); Mean Corpuscular Volume 83.8 fl (80-100); Mean Platelet Volume 8.7 fl (7.4-10.4); Monocytes Absolute Auto 0.6 K/mm3 (0.1-0.6); Monocytes Percent Auto 4.4 % (2.6-8.5); Neutrophils Absolute Auto 9.3 K/mm3 (1.3-6.7); Neutrophils Percent Auto 72.6 % (45.5-73.1); Platelet Count Result 379 k/mm3 (150-375); Red Blood Count 4.88 M/mm3 (4.2-5.4); Red Cell Distribution Width 15.7 % (11.5-14.5); White Blood Count 12.8 K/mm3 (4.5-10.0)
[2025-01-16 13:06] LABS: Alanine Aminotransferase 42 U/L (6-35); Albumin Level 4.2 g/dL (3.5-5.1); Alkaline Phosphatase 90 U/L (38-126); Anion Gap 11 mmol/L (4-12); Aspartate Amino Transferase 26 U/L (14-36); Bilirubin,Total 0.5 mg/dL (0.2-1.3); Blood Urea Nitrogen 10 mg/dL (7-17); Calcium 9.3 mg/dL (8.4-10.2); Carbon Dioxide 27 mmol/L (22-30); Chloride 102 mmol/L (98-107); Estimated CRCL calculation 135 ml/min; Estimated Glomerular Filt Rate > 60; Glucose 92 mg/dL (65-110); Potassium 4.4 mmol/L (3.4-5.0); Sodium 140 mmol/L (137-145)
[2025-01-16 13:16] LABS: Troponin I < 0.012 ng/mL (0.000-0.034)
[2025-01-16 13:30] LABS: Influenza A QL RT-PCR Negative (Negative); Influenza B QL RT-PCR Negative (Negative); RSV RNA, RT-PCR Negative (Negative); SARS-CoV-2 RNA PCR Negative (Negative)
[2025-01-16 14:25] VITALS: BP 147/96; PULSE 85
[2025-01-16] MEDS: MECLIZINE HCL 25 MG TABLET PO (15:03)
[2025-01-16 15:22] LABS: BEDSIDEPREGUCG Negative (Negative)
[2025-01-16 15:34] LABS: Add Urine Microscopic? YES; Appearance Urine Cloudy (Clear); Bacteria Urine Rare /hpf; Bilirubin Urine Negative (Negative); Blood Urine Negative (Negative); Color Urine Yellow (Yellow); Glucose Urine UA Negative (Negative); Ketones Urine Negative (Negative); Leukocyte Esterase Ur Negative LEU/UL (Negative); Nitrate Urine Negative (Negative); Non Pathogenic Casts 0-2; Protein Urine Negative (Negative); RBC Urine 0-2 /hpf (0-2); Specific Grav Ur 1.018 (1.001-1.035); Squamous Epithelial Cell Urine Moderate /hpf (Few); Urobilinogen Urine 0.2 mg/dL (<2.0); WBC Urine 0-5 /hpf (0-3)
--- NOTE | 2025-01-16 15:53 | ED.GENADULT ---
HPI - General Adult General Chief complaint: Dizziness Stated complaint: vertigo, htn Time Seen by Provider: 01/16/25 14:21 History of Present Illness HPI narrative: Patient is a 39-year-old female presents emergency department with chief complaint of vertiginous symptoms. The patient states that she recently has had some pressure and changes in her hearing upper left ear patient states that she was on a long car ride came home and then blocked down on the bed after she flopped down on the bed she noticed that she started having a spinning sensation over her entire body Related Data Home Medications ?Medication ?Instructions ?Recorded ?Confirmed ?Last Taken ?Type glirikcdzmlx-Pk-gvyl-minerals tablet PO 04/26/21 10/12/24 Unknown History (Multiple Vitamin, Womens tablet) omeprazole 20 mg tablet,delayed 20 mg PO DAILY 04/26/21 10/12/24 Unknown History release cholecalciferol (vitamin D3) 50 50 mcg PO DAILY 12/06/21 10/12/24 Unknown History mcg (2,000 unit) capsule Allergies Allergy/AdvReac Type Severity Reaction Status Date / Time tetracycline Allergy Unknown Unknown Verified 10/12/24 07:53 Review of Systems Review of Systems: A 10 system review of systems was completed on the patient and is negative except for what is stated in the HPI. Nursing and ancillary documentation was reviewed. [facility] Past Medical History Medical History Abnormal TSH Vitamin D deficiency Hyperlipidemia Mild persistent asthma without complication Anxiety Adrenal adenoma unspecified laterality 07/24/2017 Surgical History Surgical History History of 2 sections 2007,2009 History of cholecystectomy History of total adrenalectomy right - 09/2017 Family History Family History Father Hypertension Other Diabetes mellitus Social History Social History Smoking status: Former smoker Alcohol intake: current Substance use: never Substance use type: does not use Lack of Transportation: No Lack of Food: Never True Current Housing: I Have Housing Concerned About Future Housing: No Difficulty Paying Gas/Electric Bills: No Difficulty Paying for Meds: No Currently Unemployed: No Education: High School Diploma/GED Difficulty w/ Childcare or Family Care: No Living arrangements: with family Occupation/Education: occupation Gender identity (if verbalized by the patient): Female Agree to blood products: Yes Exam Narrative: GENERAL: Well-appearing, well-nourished, and in no acute distress. HEAD: Normocephalic, atraumatic. EYES: PERRLA and EOMI. ENT: Nares clear, no rhinorrhea or epistaxis. Mucous membranes moist. Left ear there is an effusion behind the tympanic membrane NECK: Supple. CHEST: Clear to auscultation. No respiratory distress. HEART: Regular rate and rhythm. No murmur heard. Normal peripheral pulses. ABDOMEN: Soft, nontender, nondistended, normal active bowel sounds. EXTREMITIES: Normal range of motion. No edema. SKIN: Warm, dry, no rash. NEURO: No focal deficits. Alert and oriented x3. Positive Hallpike to the right PSYCH: Normal mood and affect. Course Vital Signs Vital signs: Vital Signs Temperature 36.3 C L 01/16/25 10:34 Pulse Rate 55 L 01/16/25 10:34 Respiratory Rate 18 01/16/25 10:34 Blood Pressure 182/98 H 01/16/25 10:34 Pulse Oximetry 98 01/16/25 10:34 Oxygen Delivery Room Air 01/16/25 10:34 Temperature 36.3 C L 01/16/25 10:34 Pulse Rate 85 01/16/25 14:25 Respiratory Rate 18 01/16/25 10:34 Blood Pressure 147/96 H 01/16/25 14:25 Pulse Oximetry 98 01/16/25 10:34 Oxygen Delivery Room Air 01/16/25 10:34 Medical Decision Making [facility] Narrative Medical decision making narrative: Differential diagnosis includes vertigo, otitis media Vital Signs Vital Signs: Vital Signs Temperature 36.3 C L 01/16/25 10:34 Pulse Rate 55 L 01/16/25 10:34 Respiratory Rate 18 01/16/25 10:34 Blood Pressure 182/98 H 01/16/25 10:34 Pulse Oximetry 98 01/16/25 10:34 Oxygen Delivery Room Air 01/16/25 10:34 Temperature 36.3 C L 01/16/25 10:34 Pulse Rate 85 01/16/25 14:25 Respiratory Rate 18 01/16/25 10:34 Blood Pressure 147/96 H 01/16/25 14:25 Pulse Oximetry 98 01/16/25 10:34 Oxygen Delivery Room Air 01/16/25 10:34 Lab Data 01/16/25 12:46 01/16/25 12:46 Labs: Lab Results 01/16/25 01/16/25 01/16/25 Range/Units 12:46 15:19 15:21 WBC 12.8 H (4.5-10.0) K/mm3 RBC 4.88 (4.2-5.4) M/mm3 Hgb 13.1 (12.0-15.0) g/dL Hct 40.9 (37.0-47.0) % MCV 83.8 (80-100) fl MCH 26.8 (26-34) pg MCHC 32.0 (32-36) g/dl RDW 15.7 H (11.5-14.5) % Plt Count 379 H (150-375) k/mm3 MPV 8.7 (7.4-10.4) fl Immature Gran % (Auto) 0.9 H (0-0.5) % Neut % (Auto) 72.6 (45.5-73.1) % Lymph % (Auto) 16.8 L (18.3-44.2) % [place] % (Auto) 4.4 (2.6-8.5) % Eos % (Auto) 4.6 H (0-4.4) % Baso % (Auto) 0.7 (0.2-1.2) % Lymph # (Auto) 2.14 (0.9-3.2) K/mm3 [place] # (Auto) 0.6 (0.1-0.6) K/mm3 Eos # (Auto) 0.6 H (0-0.3) K/mm3 Baso # (Auto) 0.1 (0.0-0.1) K/mm3 Abs Immat Gran (auto) 0.11 H (0.00-0.031) K/mm3 Absolute Neuts (auto) 9.3 H (1.3-6.7) K/mm3 Absolute Nucleated RBC 0.000 (0.0-0.012) K/mm3 Nucleated RBC % 0.0 (0.0-0.2) % Sodium 140 (137-145) mmol/L Potassium 4.4 (3.4-5.0) mmol/L Chloride 102 (98-107) mmol/L Carbon Dioxide 27 (22-30) mmol/L Anion Gap 11 (4-12) mmol/L BUN 10 (7-17) mg/dL Creatinine 0.69 L (0.7-1.0) mg/dL Estim Creat Clear Calc 135 ml/min Estimated GFR > 60 (59 - ) Glucose 92 (65-110) mg/dL Calcium 9.3 (8.4-10.2) mg/dL Total Bilirubin 0.5 (0.2-1.3) mg/dL AST 26 (14-36) U/L ALT 42 H (6-35) U/L Alkaline Phosphatase 90 (38-126) U/L Troponin I < 0.012 (0.000-0.034) ng/mL Total Protein 7.0 (6.3-8.2) g/dL Albumin 4.2 (3.5-5.1) g/dL Urine Color Yellow (Yellow) Urine Appearance Cloudy H (Clear) Urine pH 7.0 (5.0-9.0) Ur Specific [place] 1.018 (1.001-1.035) Urine Protein Negative (Negative) mg/dL Urine Glucose (UA) Negative (Negative) mg/dL Urine Ketones Negative (Negative) mg/dL Ur Blood (Man) Negative (Negative) Urine Nitrate Negative (Negative) Urine Bilirubin Negative (Negative) Urine Urobilinogen 0.2 (<2.0) mg/dL Leukocyte Esterase Rfl Negative (Negative) RAZA/UL Urine RBC 0-2 (0-2) /hpf Urine WBC 0-5 (0-3) /hpf Ur Squamous Epith Cells Moderate (Few) /hpf Urine Bacteria Rare /hpf Urine Casts 0-2 POC Urine HCG, Qual Negative (Negative) Influenza A (RT-PCR) Negative (Negative) Influenza B (RT-PCR) Negative (Negative) RSV (RT-PCR) Negative (Negative) SARS-CoV-2 RNA (RT-PCR) Negative (Negative) Discharge Plan Discharge Clinical Impression: Benign paroxysmal positional vertigo, Otitis media of left ear Patient Disposition: Home, Self-Care Condition: Stable Instructions: Antibiotic Form, Vertigo (ED), Ear Infection (ED), Benign Paroxysmal Positional Vertigo (ED) Patient Language: Indonesian Prescriptions: New amoxicillin-pot clavulanate 875-125 mg tablet 1 tablet PO Q12H 10 Days Qty: 20 0RF meclizine [Antivert] 50 mg tablet 50 mg PO BID PRN (Reason: dizziness) Qty: 20 0RF No Action Multiple Vitamin, Womens Tablet PO omeprazole 20 mg tablet,delayed release (DR/EC) 20 mg PO DAILY cholecalciferol (vitamin D3) 50 mcg (2,000 unit) capsule 50 mcg PO DAILY hydroxyzine HCl 25 mg tablet 25 mg PO TID PRN (Reason: anxiety) Qty: 90 2RF albuterol sulfate 90 mcg/actuation HFA aerosol inhaler 1 puff inhalation Q4H PRN (Reason: shortness of breath or wheezing) Qty: 8.5 5RF fluoxetine [Prozac] 40 mg capsule 40 mg PO QAM Qty: 90 1RF Breztri Aerosphere 160-9-4.8 mcg/actuation HFA aerosol inhaler 2 inh inhalation BID Qty: 10.7 3RF simvastatin 10 mg tablet 10 mg PO DAILY Qty: 90 1RF Follow-up/Referrals: Nadira Diza MD [Primary Care Provider] - Time of Disposition: 16:04
[2025-01-16 16:15] VITALS: BP 149/75; PULSE 76; RESP 19; O2SAT 99
--- OUTSIDE RECORDS SUMMARY | 2025-01-16 17:40 | XMS_ITS | Clinical Summary ---
Author Organization [facility] [employer] Address [address] [address] Care Team Providers Care Fire Fighter Name Role Phone Unavailable Primary Care Provider Unavailabl e Source Comments [facility],non-owned Affiliates and Associated Physician Practices is amultiple site organization consisting of ambulatory clinics and hospital sitesin [place], [place] and [place]. This disclosure is being madepursuant to the Care Everywhere program and may not contain all information available regarding this patient. Last updated 18.[facility] [employer] Social History Tobacco Use Types Packs/Day Years [...]
--- OUTSIDE RECORDS SUMMARY | 2025-01-16 17:40 | XMS_ITS | Patient Health Summary ---
Author Organization [facility] [employer] Address [address] [place] [address] Care Team Providers Care Net Maker Name Role Phone Unavailable Primary Care Provider Unavailabl e Note from [facility],non-owned Affiliates and Associated Physician Practices is amultiple site organization consisting of ambulatory clinics and hospital sitesin [place], [place], [place] and [place]. This disclosure is being madepursuant to the Care Everywhere program and may not contain all informatio navailable regarding this patient. Last updated 18.[facility] [employer] Social History Tobacco Use Types Packs/Day Years Used Date Smoking Tobacco: Never Assessed Sex and Gender Information Value Date Recorded Sex Assigned at Female 02/20/2021 12:06 PM CDT Gender Identity Female 02/20/2021 12:06 PM CDT Sexual Orientation Straight 02/20/2021 12 :06 PM CDT
--- OUTSIDE RECORDS SUMMARY | 2025-01-16 17:40 | XMS_ITS | Referral Summary ---
Author Organization [facility] Address [address] [place] [address] Care Team Providers Care Promotional Demonstrator Name Role Phone Unavailable Primary Care Provider Unavailabl e Source Comments [facility],non-owned Affiliates and Associated Physician Practices is amultiple site organization consisting of ambulatory clinics and hospital sitesin [place], [place], [place] and [place]. This disclosure is being madepursuant to the Care Everywhere program and may not contain all information available regarding this patient. Last updated 18.[facility] Present Social History Tobacco Use Types Packs/Day Years Used Date Smoking Tobacco: Never Assessed Sex and Gender Information Value Date Recorded Sex Assigned at Female 02/20/2021 12:06 PM CDT Gender Identity Female 02/20/2021 12:06 PM CDT Sexual Orientation Straight 02/20/2021 12 :06 PM CDT Plan of Treatment Not on file
== END 2025-01-16 16:16 | disposition home or self-care (01) ==
PROVIDERS: Physician Assistant; Emergency Provider Emergency Medicine; PCP Family Medicine
DX: H81.10 Benign paroxysmal vertigo, unspecified ear (principal); H66.92 Otitis media, unspecified, left ear; Z20.822 Contact with and (suspected) exposure to COVID-19; E55.9 Vitamin D deficiency, unspecified; E78.5 Hyperlipidemia, unspecified; J45.30 Mild persistent asthma, uncomplicated; F41.9 Anxiety disorder, unspecified; Z90.49 Acquired absence of other specified parts of digestive tract; Z87.891 Personal history of nicotine dependence; Z79.899 Other long term (current) drug therapy
CPT/HCPCS: 36415; 70450; 80053; 81001; 81025; 84484; 85025; 87637; 93005; 99284; A9270

== ENCOUNTER 2025-05-17 11:10 | Outpatient (CLI) | payer OTHER, SELFPAY ==
[2025-05-17 19:00] LABS: Basophils Absolute Auto 0.1 K/mm3 (0.0-0.1); Basophils Percent Auto 1.2 % (0.2-1.2); Eosinophils Absolute Auto 1.1 K/mm3 (0-0.3); Hematocrit 40.9 % (37.0-47.0); Hemoglobin 12.7 g/dL (12.0-15.0); Immature Granulocyte Absolute 0.07 K/mm3 (0.00-0.031); Immature Granulocyte Percent A 0.6 % (0-0.5); Lymphocytes Absolute Auto 2.97 K/mm3 (0.9-3.2); Lymphocytes Percent Auto 25.6 % (18.3-44.2); Mean Corpuscular HGB Conc 31.1 g/dl (32-36); Mean Corpuscular Hemoglobin 26.6 pg (26-34); Mean Corpuscular Volume 85.6 fl (80-100); Monocytes Absolute Auto 0.6 K/mm3 (0.1-0.6); Monocytes Percent Auto 5.2 % (2.6-8.5); Neutrophils Absolute Auto 6.8 K/mm3 (1.3-6.7); Neutrophils Percent Auto 58.4 % (45.5-73.1); Platelet Count Result 419 k/mm3 (150-375); Red Blood Count 4.78 M/mm3 (4.2-5.4); Red Cell Distribution Width 15.5 % (11.5-14.5); White Blood Count 11.6 K/mm3 (4.5-10.0)
[2025-05-17 19:34] LABS: Free T4 Free Thyroxine 1.04 ng/dL (0.78-2.19); Vitamin D 25 Hydroxy 36.1 ng/mL
[2025-05-17 19:38] LABS: Alanine Aminotransferase 35 U/L (6-35); Albumin Level 4.1 g/dL (3.5-5.1); Alkaline Phosphatase 79 U/L (38-126); Anion Gap 6 mmol/L (4-12); Aspartate Amino Transferase 29 U/L (14-36); Bilirubin,Total 0.2 mg/dL (0.2-1.3); Blood Urea Nitrogen 11 mg/dL (7-17); Calcium 9.3 mg/dL (8.4-10.2); Carbon Dioxide 29 mmol/L (22-30); Chloride 103 mmol/L (98-107); Cholesterol 186 mg/dL (0-200); Estimated Glomerular Filt Rate > 60; Glucose 87 mg/dL (65-110); HDL Direct 32 mg/dL; Potassium 4.9 mmol/L (3.4-5.0); Sodium 138 mmol/L (137-145); Total Protein 7.1 g/dL (6.3-8.2); Triglycerides 185 mg/dL (<150)
[2025-05-17 19:49] LABS: LDL Cholesterol Direct 111 mg/dL
[2025-05-17 20:12] LABS: Thyroid Stimulating Hormone 0.232 uIU/mL (0.465-4.680)
[2025-05-17 21:15] LABS: Hemoglobin A1C 5.9 % (<5.7)
[2025-05-18 06:53] LABS: Rubella IgG Antibody 8.15 Index; Rubeola Measles IgG >300.00 AU/mL
== END 2025-05-17 11:11 | disposition home or self-care (01) ==
LOC: ANHGOSHLAB 11:12
PROVIDERS: PCP Family Medicine; Visit Provider Nurse Practitioner Family
DX: Z02.89 Encounter for other administrative examinations (principal); Z23 Encounter for immunization; E78.5 Hyperlipidemia, unspecified; F41.9 Anxiety disorder, unspecified; R73.01 Impaired fasting glucose; E55.9 Vitamin D deficiency, unspecified
CPT/HCPCS: 36415; 80053; 80061; 82306; 83036; 84439; 84443; 85025; 86735; 86762; 86765

== ENCOUNTER 2025-10-22 17:36 | Emergency (ER) | payer OTHER, SELFPAY ==
--- NOTE | ~2025-10-22 | XR_ITS ---
EXAMINATION: XR foot LT min 3V, 10/22/2025 18:13 [employer] HISTORY: pain w/o injury proxlateral foot COMPARISON: No comparisons available. Findings: No acute fracture or malalignment. No significant degenerative changes. Soft tissues unremarkable. Impression: No acute fracture or malalignment. Reviewed, dictated and finalized at location P. [employer] Impression: No acute fracture or malalignment.
[2025-10-22 17:45] VITALS: BP 135/66; PULSE 70; RESP 16; TEMP 36.6; O2SAT 97
--- NOTE | 2025-10-22 18:16 | ED.LOWEXIN ---
HPI - Extremity Injury (Lower) General Chief Complaint: Extremity Injury, Lower Stated Complaint: INJURED L FOOT Time Seen by Provider: 10/22/25 18:10 Source: patient and RN notes reviewed Mode of arrival: ambulatory (With cane) Limitations: no limitations History of Present Illness HPI Narrative: 40-year-old female patient presents today with a 2 day history of left proximal lateral foot pain without injury or trauma. She is pain-free at rest, but this increases significantly with weight-bearing. She has tried Tylenol, heat, and ice with little improvement. She describes the pain as burning. Related Data Home Medications ?Medication ?Instructions ?Recorded ?Confirmed ?Last Taken ?Type ltszephdkfmo-Cb-tsnr-minerals tablet PO 04/26/21 04/11/25 Unknown History (Multiple Vitamin, Womens tablet) omeprazole 20 mg tablet,delayed 20 mg PO DAILY 04/26/21 10/22/25 Unknown History release cholecalciferol (vitamin D3) 50 50 mcg PO DAILY 12/06/21 10/22/25 Unknown History mcg (2,000 unit) capsule Allergies Allergy/AdvReac Type Severity Reaction Status Date / Time tetracycline Allergy Unknown Rash Verified 10/22/25 17:52 [facility] Past Medical History Medical History Abnormal TSH Vitamin D deficiency Hyperlipidemia Mild persistent asthma without complication Anxiety Adrenal adenoma unspecified laterality 07/24/2017 Surgical History Surgical History History of 2 sections 2007,2009 History of cholecystectomy History of total adrenalectomy right - 09/2017 Family History Family History Father Hypertension Other Diabetes mellitus Social History Social History Smoking status: Former smoker Alcohol intake: current Substance use: never Substance use type: does not use Lack of Transportation: No Lack of Food: Never True Current Housing: I Have Housing Concerned About Future Housing: No Difficulty Paying Gas/Electric Bills: No Difficulty Paying for Meds: No Currently Unemployed: No Education: High School Diploma/GED Difficulty w/ Childcare or Family Care: No Living arrangements: with family Occupation/Education: occupation Gender identity (if verbalized by the patient): Female Agree to blood products: Yes Comments At time of signature, I have reviewed and agree with nursing past medical, surgical, social and family history unless otherwise noted. Please see nursing chart for further information. There is no relevant family history pertinent to the presenting complaint Exam Narrative: GENERAL: Well-appearing, well-nourished, and in no acute distress. HEAD: Normocephalic, atraumatic. EYES: EOMI. No redness or drainage. Conjunctivae normal. ENT: Mucous membranes pink and moist. NECK: Normal AROM. CHEST: No respiratory distress. EXTREMITIES: Left foot: Mild tenderness to the base the 5th metatarsal extending medially over the cuboid with mild localized edema over the cuboid. No erythema. No edema over the remainder of the foot or ankle. Ankle is nontender. Distal sensation intact. Capillary refill normal. Pedal pulse normal. Range of motion of the ankle normal SKIN: Warm, dry, no rash. Capillary refill normal. Normal skin turgor. NEURO: No focal deficits. Alert and oriented x3. Gait steady with cane. PSYCH: Normal affect. No signs of depression or anxiety. Course Course Level of Care: Express Care Visit Vital Signs Vital signs: Vital Signs Temperature 97.8 F 10/22/25 17:45 Pulse Rate 70 10/22/25 17:45 Respiratory Rate 16 10/22/25 17:45 Blood Pressure 135/66 10/22/25 17:45 Pulse Oximetry 97 10/22/25 17:45 Oxygen Delivery Room Air 10/22/25 17:45 Temperature 97.8 F 10/22/25 17:45 Pulse Rate 70 10/22/25 17:45 Respiratory Rate 16 10/22/25 17:45 Blood Pressure 135/66 10/22/25 17:45 Pulse Oximetry 97 10/22/25 17:45 Oxygen Delivery Room Air 10/22/25 17:45 Reviewed MDM - Extremity Injury (Lower) MDM Narrative Medical decision making narrative: 40-year-old female patient presents today with a 2 day history of left proximal lateral foot pain without injury or trauma. She is pain-free at rest, but this increases significantly with weight-bearing. She has tried Tylenol, heat, and ice with little improvement. She describes the pain as burning. Upon exam,Mild tenderness to the base the 5th metatarsal extending medially over the cuboid with mild localized edema over the cuboid. No erythema. No edema over the remainder of the foot or ankle. Ankle is nontender. Distal sensation intact. Capillary refill normal. Pedal pulse normal. Range of motion of the ankle normal. Foot xray normal. Recommend podiatry follow up if symptoms persist. Patient agrees with plan. Vital signs stable. Anticipatory guidance given. Differential Diagnosis Differential diagnosis: Likely other (foot sprain, tarsal tunnel, osteoarthritis, donovan's neuroma, fracture) Imaging Data Radiologist's impression: ITS Impressions Foot X-Ray 10/22/25 18:40 Impression: No acute fracture or malalignment. Critical Care Time Critical Care Time Critical Care Time: No Discharge Plan Discharge Clinical Impression: Acute pain of left foot Patient Disposition: Home Condition: Stable Instructions: Arthralgia (ED) Additional Instructions: Your x-ray is negative for fracture. Continue taking nwkd-vfl-ogkkjjt medication if needed. Rest the foot. Follow-up with Orthopedics, PCP, or podiatry for further evaluation if symptoms persist. Patient Language: Upper Sorbian Prescriptions: No Action Multiple Vitamin, Womens Tablet PO omeprazole 20 mg tablet,delayed release (DR/EC) 20 mg PO DAILY cholecalciferol (vitamin D3) 50 mcg (2,000 unit) capsule 50 mcg PO DAILY fluoxetine [Prozac] 40 mg capsule 40 mg PO QAM Qty: 90 1RF simvastatin 10 mg tablet 10 mg PO DAILY Qty: 90 1RF Breztri Aerosphere 160-9-4.8 mcg/actuation HFA aerosol inhaler 2 inh inhalation BID Qty: 10.7 3RF albuterol sulfate 90 mcg/actuation HFA aerosol inhaler 1 puff inhalation Q4H PRN (Reason: shortness of breath or wheezing) Qty: 8.5 5RF hydroxyzine HCl 25 mg tablet 25 mg PO TID PRN (Reason: anxiety) Qty: 90 2RF Follow-up/Referrals: Ara Martin DPM [Physician, Podiatry] Caty Chaney DPM [Physician, Podiatry] Nadira Diaz MD [Primary Care Provider, [facility]] Time of Disposition: 18:47
== END 2025-10-22 18:50 | disposition home or self-care (01) ==
PROVIDERS: Emergency Provider Nurse Practitioner; PCP Family Medicine
DX: M79.672 Pain in left foot (principal); E78.5 Hyperlipidemia, unspecified; E55.9 Vitamin D deficiency, unspecified; J45.909 Unspecified asthma, uncomplicated; F41.9 Anxiety disorder, unspecified; Z87.891 Personal history of nicotine dependence
CPT/HCPCS: 73630; 99213; G0463